=== PATIENT | female | born 1985 | race Caucasian/White ===

== ENCOUNTER 2016-09-27 18:00 | Emergency (ER) | payer OTHER ==
--- NOTE | 2016-09-27 18:05 | UCPHY ---
H & P Patient Type: New HPI/ROS: HPI CHIEF COMPLAINT: Nausea vomiting, diarrhea, dehydration HISTORY OF PRESENT ILLNESS: This patient very pleasant 30-year-old female significant past medical history for cervical cancer in remission, did receive radiation and chemotherapy last chemotherapy dose was April 2015, she presents urgent care with ongoing nausea vomiting diarrhea with intermittent over the past 6 months. Weight loss 20 lb. No nighttime sweats or chills. She was just seen by [facility]ology of the [facility] yesterday she had an EGD and a colonoscopy she is unclear exactly of the biopsy results but does report that she had a clean EGD and colonoscopy. She is being followed by them for weight loss and persistent nausea vomiting and diarrhea. She states she has also seen oncology for this problem. She presents urgent care as she had continues to have nausea vomiting diarrhea she is requesting IV fluids. Currently upon arrival here to the Urgent Care she appears well nontoxic however she is cachectic malnourished. She has no abdominal pain. No fever. No chest pain shortness of breath. Patient also tells me that she has been doing this for close to 6 months. She has had diarrheal studies. Followed by GI. Her oncologist is Dr. Blake is aware of weight lost nausea vomiting diarrhea. Recommend to see GI. Past Medical History: Cervical cancer, anxiety Past Surgical History: no recent surgical history, port left chest Social History: Denies daily use of drugs alcohol tobacco products Family History: noncontributory ROS REVIEW OF SYSTEMS: A comprehensive 10 point review of systems is otherwise negative aside from elements mentioned in the history of present illness. Exam Constitutional appears well nontoxic, however malnourished, cachectic, triage nursing summary reviewed, vital signs reviewed, awake/alert. Eyes normal conjunctivae and sclera, EOMI, PERRLA. HENT normal inspection, atraumatic, moist mucus membranes, no epistaxis, neck supple/ no meningismus, no raccoon eyes. Respiratory clear to auscultation bilaterally, normal breath sounds, no respiratory distress, no wheezing. Cardiovascular rate normal, regular rhythm, no murmur, no edema, distal pulses normal. Gastrointestinal soft, non-tender, no rebound, no guarding, normal bowel sounds, no distension, no pulsatile mass. Genitourinary no CVA tenderness. Musculoskeletal no midline vertebral tenderness, full range of motion, no calf swelling, no tenderness of extremities, no meningismus, good pulses, neurovascularly intact. Skin pink, warm, & dry, no rash, skin atraumatic. Neurologic awake, alert and oriented x 3, AAOx3, moves all 4 extremities equally, motor intact, sensory intact, CN II-XII intact, normal cerebellar, normal vision, normal speech. Psychiatric normal mood/affect. Heme/Lymph/Immune no lymphadenopathy. Differential Diagnosis: includes but is not limited to in a particular order, electrolyte disturbance, dehydration, malabsorption, malnutrition, protein deficiency, anxiety, depression Medical Decision Making: Plan for this patient will access her port at her request, she received IV fluids 2 L bolus, check basic blood work including abdominal labs. And re-evaluate. I do recommend she follows up with her fitter's assistant in [facility] [place] for weight loss and malnutrition. She agrees with this plan. IV Zofran has been ordered for nausea. Re-evaluation: 1900: Re-examination at this time she is getting IV fluids she feels well. No vomiting. No fever. Blood work has been reviewed is unremarkable. Her lower to go home do recommend close follow-up with her GI doctor if worsening of symptoms including continued to have vomiting and nausea abdominal pain fever or weight loss she should seek medical attention in the emergency room. She understands. Discussed at length with her and her . Source: Patient - Medical/Surgical History Hx Diabetes: No Other PMH: cervical cancer, lymph nodes, port placement, hip surgery, lymphnode ectomy 2011, leap BX 2011 - Family History Significant Family History: No pertinent family hx - Social History Smoking Status: Former smoker Constitutional: Initial Vital Signs Heart Rate 116 H 09/27/16 18:03 Respiratory Rate 18 09/27/16 18:03 Blood Pressure 102/71 09/27/16 18:03 O2 Sat (%) 99 09/27/16 18:03 O2 Delivery Mode Room Air Allergies/Adverse Reactions: No Known Allergies Allergy (Unverified 08/20/12 08:57) Home Medications: Medication Instructions Recorded Calcium Carb W/Vit D [Calcium Carb 500 mg PO DAILY 10/23/13 W/Vit D 500/200 (*)] Estrogens,Conjugated [Premarin 1 paris VAG MWF@2100 10/23/13 Vaginal (*)] Naproxen [Naprosyn 250 mg] 250 mg PO BID PRN 10/23/13 Norgestimate-Ethinyl Estradiol 1 each PO DAILY 10/23/13 [Sprintec 28 Day Tablet] Medical Decision Making - Data Points Laboratory Results: Laboratory Results 09/27/16 18:40 09/27/16 18:40 09/27/16 09/27/16 09/27/16 18:40 18:40 18:40 WBC RBC Hgb Hct MCV MCH MCHC RDW Plt Count MPV Neut % (Auto) Lymph % (Auto) [place] % (Auto) Eos % (Auto) Baso % (Auto) Nucleat RBC Rel Count Absolute Neuts (auto) Absolute Lymphs (auto) Absolute Monos (auto) Absolute Eos (auto) Absolute Basos (auto) Absolute Nucleated RBC Immature Gran % Immature Gran # PT 12.9 SEC SEC (12.0-15.0) INR 1.00 (0.83-1.16) APTT 30.0 SEC SEC (23.0-38.0) VBG Lactic Acid Sodium 135 mEq/L mEq/L (134-144) Potassium 3.6 mEq/L mEq/L (3.5-5.2) Chloride 97 mEq/L mEq/L (97-110) Carbon Dioxide 24 mEq/l mEq/l (22-31) Anion Gap 14 mEq/L mEq/L (8-16) BUN 11 mg/dL mg/dL (7-23) Creatinine 0.7 mg/dL mg/dL (0.6-1.0) Estimated GFR > 60 Glucose 107 mg/dL H mg/dL (70-100) Calcium 8.8 mg/dL mg/dL (8.5-10.4) Total Bilirubin 0.6 mg/dL mg/dL (0.1-1.4) Conjugated Bilirubin 0.2 mg/dL mg/dL (0.0-0.5) Unconjugated Bilirubin 0.4 mg/dL mg/dL (0.0-1.1) AST 38 IU/L IU/L (14-46) ALT 96 IU/L H IU/L (9-52) Alkaline Phosphatase 52 IU/L IU/L (38-126) Total Protein 6.4 g/dL g/dL (6.3-8.2) Albumin 3.6 g/dL g/dL (3.5-5.0) Lipase 66.0 IU/L IU/L (23-300) Beta HCG, Qual NEGATIVE 09/27/16 09/27/16 18:40 18:40 WBC 6.94 10^3/uL 10^3/uL (3.80-9.50) RBC 4.18 10^6/uL 10^6/uL (4.18-5.33) Hgb 13.5 g/dL g/dL (12.6-16.3) Hct 39.6 % % (38.0-47.0) MCV 94.7 fL fL (81.5-99.8) MCH 32.3 pg pg (27.9-34.1) MCHC 34.1 g/dL g/dL (32.4-36.7) RDW 13.4 % % (11.5-15.2) Plt Count 289 10^3/uL 10^3/uL (150-400) MPV 10.2 fL fL (8.7-11.7) Neut % (Auto) 68.3 % % (39.3-74.2) Lymph % (Auto) 23.1 % % (15.0-45.0) [place] % (Auto) 7.5 % % (4.5-13.0) Eos % (Auto) 0.6 % % (0.6-7.6) Baso % (Auto) 0.4 % % (0.3-1.7) Nucleat RBC Rel Count 0.0 % % (0.0-0.2) Absolute Neuts (auto) 4.74 10^3/uL 10^3/uL (1.70-6.50) Absolute Lymphs (auto) 1.60 10^3/uL 10^3/uL (1.00-3.00) Absolute Monos (auto) 0.52 10^3/uL 10^3/uL (0.30-0.80) Absolute Eos (auto) 0.04 10^3/uL 10^3/uL (0.03-0.40) Absolute Basos (auto) 0.03 10^3/uL 10^3/uL (0.02-0.10) Absolute Nucleated RBC 0.00 10^3/uL 10^3/uL (0-0.01) Immature Gran % 0.1 % % (0.0-1.1) Immature Gran # 0.01 10^3/uL 10^3/uL (0.00-0.10) PT INR APTT VBG Lactic Acid 1.0 mmol/L mmol/L (0.7-2.1) Sodium Potassium Chloride Carbon Dioxide Anion Gap BUN Creatinine Estimated GFR Glucose Calcium Total Bilirubin Conjugated Bilirubin Unconjugated Bilirubin AST ALT Alkaline Phosphatase Total Protein Albumin Lipase Beta HCG, Qual Medications Given: Discontinued Medications Sodium Chloride (Ns) 2,000 mls @ 0 mls/hr IV ONCE ONE PRN Reason: Wide Open Stop: 09/27/16 18:07 Last Admin: 09/27/16 18:43 Dose: 2,000 mls Ondansetron HCl (Zofran) 4 mg IVP EDNOW ONE Stop: 09/27/16 18:07 Last Admin: 09/27/16 18:44 Dose: 4 mg Departure - Departure Disposition: Home, Routine, Self-Care Clinical Impression: Dehydration, Nausea vomiting and diarrhea Condition: Good Instructions: Dehydration (ED), Acute Nausea and Vomiting (ED), Acute Diarrhea (ED) Additional Instructions: 1. Return to the urgent care or emergency room if you have any worsening symptoms questions or concerns. - PQRS PQRS Measurement: n/a
[2016-09-27] MEDS ORDERED: ONDANSETRON 4 MG/2 ML VIAL IVP ONE (18:06)
[2016-09-27] MEDS ORDERED: NS 2,000 ML IV ONE (18:06)
[2016-09-27 18:10] VITALS: BP 102/71; PULSE 116; RESP 18; O2SAT 99
[2016-09-27 18:44] LABS: % IMMATURE GRANULYOCYTES 0.1 % (0.0-1.1); ABSOLUTE IMMATURE GRANULOCYTES 0.01 10^3/uL (0.00-0.10); ADD DIFF? NO; ADD MORPH? NO; ADD SCAN? NO; ATYPICAL LYMPHOCYTE FLAG 20 (0-99); FRAGMENT RBC FLAG 0 (0-99); HEMATOCRIT 39.6 % (38.0-47.0); HEMOGLOBIN 13.5 g/dL (12.6-16.3); LEFT SHIFT FLG 0 (0-99); LIPEMIA HEMOLYSIS FLAG 90 (0-99); MEAN CELL HEMOGLOBIN 32.3 pg (27.9-34.1); MEAN CELL HEMOGLOBIN CONCENTR. 34.1 g/dL (32.4-36.7); MEAN CELL VOLUME 94.7 fL (81.5-99.8); MEAN PLATELET VOLUME 10.2 fL (8.7-11.7); PLATELET CLUMPS FLAG 0 (0-99); PLATELET COUNT 289 10^3/uL (150-400); RED BLOOD CELL COUNT 4.18 10^6/uL (4.18-5.33); RED CELL DISTRIBUTION WIDTH 13.4 % (11.5-15.2)
[2016-09-27 18:55] LABS: PROTIME(PATIENT) 12.9 SEC (12.0-15.0)
[2016-09-27 19:04] LABS: ALANINE AMINOTRANSFERASE 96 IU/L (9-52); ALBUMIN 3.6 g/dL (3.5-5.0); ALKALINE PHOSPHATASE 52 IU/L (38-126); ANION GAP 14 mEq/L (8-16); ASPARTATE AMINOTRANSFERASE 38 IU/L (14-46); BILIRUBIN,TOTAL 0.6 mg/dL (0.1-1.4); BILIRUBIN-CONJUGATED 0.2 mg/dL (0.0-0.5); BILIRUBIN-UNCONJUGATED 0.4 mg/dL (0.0-1.1); CALCIUM 8.8 mg/dL (8.5-10.4); CARBON DIOXIDE 24 mEq/l (22-31); CHLORIDE 97 mEq/L (97-110); CREATININE 0.7 mg/dL (0.6-1.0); GLOMERULAR FILTRATION RATE > 60; GLUCOSE 107 mg/dL (70-100); POTASSIUM 3.6 mEq/L (3.5-5.2); SODIUM 135 mEq/L (134-144); TOTAL PROTEIN 6.4 g/dL (6.3-8.2)
[2016-09-27 19:40] LABS: COLOR YELLOW; LEUKOCYTE ESTERASE,URINE NEGATIVE (NEGATIVE); NITRITE,URINE NEGATIVE (NEGATIVE)
[2016-09-27 19:47] LABS: RBC,URINE OCCASIONAL /hpf (0-3); WBC,URINE NONE SEEN /hpf (0-3)
[2016-09-27 19:48] LABS: BACTERIA 1+ /hpf (NONE SEEN)
== END 2016-09-27 20:27 | disposition home or self-care (01) ==
LOC: CED 18:00
DX: R11.2 Nausea with vomiting, unspecified (principal); R19.7 Diarrhea, unspecified; E86.0 Dehydration; F41.9 Anxiety disorder, unspecified; Z85.41 Personal history of malignant neoplasm of cervix uteri; Z92.3 Personal history of irradiation; Z92.21 Personal history of antineoplastic chemotherapy
CPT/HCPCS: 80048-PO; 80076-PO; 81003-PO; 81015-PO; 83605-PO; 83690-PO; 84703-PO; 85025-PO; 85610-PO; 85730-PO; 96361-PO; 96374-PO; 99205-PO; G0463-PO; J2405

== ENCOUNTER 2016-10-15 22:07 | Emergency (ER) | payer OTHER ==
--- NOTE | 2016-10-15 22:30 | UCPHY ---
H & P Patient Type: Established HPI/ROS: Patient presented to the urgent care at 10:20 a.m. at night. She has a complex history of cervical cancer with chronic diarrhea nausea and requires frequent presentations for IV hydration. Patient transfer Seth at home was not helping. She has a Port-A-Cath in place. She is presenting tonight requesting antiemetics and IV fluids. I have explained to her that the department will be closing and 40 minutes and that is unlikely that we will be able to complete her care with in that amount of time and if we do not and then she would need to be transferred to another facility. On medical screening examination she is sitting comfortably in no distress. There is no evidence of acute emergent process at this time. I suggested that she go to [facility] Emergency Department where she can have her port accessed received antiemetics and adequate fluid is and reassessment. Patient is green with this plan and has left to present to the facility. Smoking Status: Former smoker Allergies/Adverse Reactions: No Known Allergies Allergy (Unverified 08/20/12 08:57) Home Medications: Medication Instructions Recorded Calcium Carb W/Vit D [Calcium Carb 500 mg PO DAILY 10/23/13 W/Vit D 500/200 (*)] Estrogens,Conjugated [Premarin 1 paris VAG MWF@2100 10/23/13 Vaginal (*)] Naproxen [Naprosyn 250 mg] 250 mg PO BID PRN 10/23/13 Norgestimate-Ethinyl Estradiol 1 each PO DAILY 10/23/13 [Sprintec 28 Day Tablet] Departure - Departure Disposition: Left Without Being Seen Condition: Fair Referrals: Abimbola Blake MD [Primary Care Provider] - As per Instructions - PQRS PQRS Measurement: NA
== END 2016-10-15 22:25 | disposition left against medical advice (07) ==
LOC: CED 22:07
DX: Z53.21 Procedure and treatment not carried out due to patient leaving prior to being seen by health care provider (principal); R11.10 Vomiting, unspecified; C53.9 Malignant neoplasm of cervix uteri, unspecified; Z87.891 Personal history of nicotine dependence

== ENCOUNTER 2016-10-28 08:38 | Emergency (ER) | payer OTHER ==
--- NOTE | 2016-10-28 09:46 | EDPHY ---
H & P Stated Complaint: N/V "dehydrated" since last pm History chronic N/V Time Seen by Provider: 10/28/16 09:22 HPI/ROS: Chief Complaint: Nausea vomiting HPI: 31-year-old with a history of metastatic cervical cancer, in remission since 2013. She has been having nausea vomiting and diarrhea for the last 2 and half months. She has had an extensive workup for this including CT scanning , GI consultation with upper and lower endoscopies which have not provided with any explanation for her symptoms. Patient takes Zofran and Reglan as needed. Patient states she has had her normal worsening nausea last night bony able to keep anything down since about 3 o'clock this morning. Zofran did not help. No fevers or chills. Is having some of her persistent diarrhea but this is unchanged. No blood or hematochezia. No chest pain cough or shortness of breath. No real abdominal pain associated with this either. ROS: 10 point Review of Systems is negative except as noted in the HPI. PMH: Metastatic cervical cancer Chronic nausea vomiting and diarrhea Social History: No smoking, no alcohol, occasional medical marijuana Family History: non-contributory Physical Exam: Gen: Awake, Alert, No Distress HEENT: Nose: no rhinorrhea Eyes: PERRLA, EOMI Mouth: Dry mucosa Neck: Supple, no JVD Chest: nontender, lungs clear to auscultation Heart: S1, S2 normal, no murmur Abd: Soft, non-tender, no guarding Back: no CVA tenderness, no midline tenderness Ext: no edema, non-tender Skin: no rash Neuro: CN II-XII intact, Sensation grossly intact, Strength 5/5 in bilateral upper and lower extremities - Personal History LMP (Females 10-55): Over 28 Days Ago Current Tetanus/Diphtheria Vaccine: Unsure Current Tetanus Diphtheria and Acellular Pertussis (TDAP): Unsure - Medical/Surgical History Hx Asthma: No Hx Chronic Respiratory Disease: No Hx Diabetes: No Hx Cardiac Disease: No Hx Renal Disease: No Other PMH: cervical cancer, lymph nodes, port placement, hip surgery, lymphnodectomy 2011, leep 2011 - Social History Smoking Status: Former smoker Constitutional: Initial Vital Signs Temperature (C) 36.5 C 10/28/16 09:00 Heart Rate 99 10/28/16 09:00 Respiratory Rate 16 10/28/16 09:00 Blood Pressure 100/81 H 10/28/16 09:00 O2 Sat (%) 97 10/28/16 09:00 O2 Delivery Mode Room Air Allergies/Adverse Reactions: No Known Allergies Allergy (Verified 10/28/16 09:15) Home Medications: Medication Instructions Recorded Compazine 10/28/16 Imipramine HCl 10/28/16 Imodium 2 mg (*) 10/28/16 Ondansetron HCl 10/28/16 traMADol 10/28/16 Medical Decision Making ED Course/Re-evaluation: Patient with a chronic nausea vomiting syndrome. She is clinically dehydrated but otherwise has a soft benign abdomen. Will obtain IV access, will give her hydration and antiemetics and reassess. I do not feel there is any imaging or blood tests in her indicated at this time at this is an exacerbation of her chronic condition which has been worked up extensively. Patient does not report any new symptoms and is comfortable with the plan. Departure - Departure Disposition: Home, Routine, Self-Care Clinical Impression: Nausea & vomiting, Dehydration Condition: Good Instructions: Acute Nausea and Vomiting in Children (ED), Dehydration (ED) Additional Instructions: Follow up with primary care physician in 3-4 days if symptoms are not improving. Return to the emergency depart for increasing pain, fevers, chills, blood in her stool, or any other concerns. Referrals: Abimbola Blake MD [Primary Care Provider] - As per Instructions
[2016-10-28] MEDS ORDERED: ONDANSETRON 4 MG/2 ML VIAL IVP ONE (09:51)
[2016-10-28] MEDS ORDERED: NS 2,000 ML IV ONE (09:51)
[2016-10-28 11:13] VITALS: RESP 14
[2016-10-28 11:40] VITALS: BP 127/89; PULSE 82; TEMP 97.5; O2SAT 95
== END 2016-10-28 11:47 | disposition home or self-care (01) ==
LOC: CED 08:38
DX: R11.2 Nausea with vomiting, unspecified (principal); E86.0 Dehydration; Z85.41 Personal history of malignant neoplasm of cervix uteri; Z87.891 Personal history of nicotine dependence
CPT/HCPCS: 96374; J2405

== ENCOUNTER 2017-04-15 13:13 | Emergency (ER) | payer OTHER ==
[2017-04-15] MEDS ORDERED: NS 1,000 ML IV ONE ×2 (13:44→14:31)
--- NOTE | 2017-04-15 13:44 | EDPHY ---
H & P Stated Complaint: Pt. states is on chemotherapy, needs rehydration. Denies vomiting. Fatigue HPI/ROS: CHIEF COMPLAINT: Dehydration History by patient HISTORY OF PRESENT ILLNESS: 31-year-old woman with a history of cervical cancer currently on chemotherapy with her last treatment 6 days ago presents today feeling weak and dizzy and like she needs IV fluids. She has had ongoing nausea and diarrhea. She describes the diarrhea as watery and nonbloody and persistent. She denies any vomiting. She denies any pain currently. She denies any urinary symptoms for cough. She denies any sore throat or thrush symptoms. She has had no fever. She is followed by a gynecological oncologist at [facility], Dr. Bryant. She had a dose of Nuesta for her white blood cell count 2 days ago. REVIEW OF SYSTEMS: As in HPI, and all other systems reviewed and are negative Source: Patient - Personal History LMP (Females 10-55): Over 28 Days Ago - Medical/Surgical History Hx Asthma: No Hx Chronic Respiratory Disease: No Hx Diabetes: No Hx Cardiac Disease: No Hx Renal Disease: No Other PMH: cervical cancer, lymph nodes, port placement, hip surgery, lymphnodectomy 2012, leep 2012 - Social History Smoking Status: Former smoker - Physical Exam Exam: General Appearance: Alert, nontoxic-appearing. Eyes: Pupils equal and round no pallor or injection. ENT, Mouth: Mucous membranes moist. OB clear with no erythema or exudate Respiratory: Normal, effort, lungs are clear to auscultation. No wheezes, rales or rhonchi. Chest: Port site clean, dry, intact Cardiovascular: Regular rate and rhythm. S1, S2, no murmurs, gallops or rubs appreciated Gastrointestinal: Abdomen is soft and nontender, no masses, bowel sounds normal. Back: No CVA tenderness, no bony tenderness Neurological: Awake, alert and oriented x 3, no pronator drift, normal gait, no pronator drift Skin: Warm and dry, no rashes. Musculoskeletal: No deformities or tenderness. Extremitie:s full range of motion, no edema Psychiatric: Patient has normal affect, there is no agitation. Constitutional: Initial Vital Signs Temperature (C) 36.4 C 04/15/17 13:20 Heart Rate 124 H 04/15/17 13:20 Respiratory Rate 16 04/15/17 13:20 Blood Pressure 74/60 L 04/15/17 13:20 O2 Sat (%) 96 04/15/17 13:20 O2 Delivery Mode Room Air Allergies/Adverse Reactions: No Known Allergies Allergy (Verified 04/15/17 13:18) Home Medications: Medication Instructions Recorded Avastin 04/15/17 CISplatin 04/15/17 Dexamethasone 04/15/17 Estrace Vaginal (*) 04/15/17 Imodium A-D 04/15/17 LORazepam 04/15/17 Neulasta 6mg (RX) 04/15/17 Opium Tincture 04/15/17 Oxyir 04/15/17 PACLitaxel 04/15/17 Sprintec 28 Day Tablet 04/15/17 Zofran Odt 04/15/17 Medical Decision Making ED Course/Re-evaluation: 31-year-old woman on chemotherapy for cervical cancer presents feeling dizzy and lightheaded with tachycardia and hypotension. Patient states her normal blood pressure tends to be low. She was given a L of normal saline with resolution of her tachycardia and improvement in her blood pressure. Her potassium was noted to be low. She was given oral potassium repeat that and a 2nd L of IV saline after which her blood pressure improved over 100 and she was feeling much better. There is no evidence of acute infection, I suspect this all dehydration related to her ongoing diarrhea and chemotherapy. Patient states she will follow up with her gynecology oncologist on Monday. - Data Points Laboratory Results: Laboratory Results 04/15/17 13:50 04/15/17 13:50 04/15/17 04/15/17 13:50 13:50 WBC 12.76 10^3/uL H 10^3/uL (3.80-9.50) RBC 4.16 10^6/uL L 10^6/uL (4.18-5.33) Hgb 13.6 g/dL g/dL (12.6-16.3) Hct 40.1 % % (38.0-47.0) MCV 96.4 fL fL (81.5-99.8) MCH 32.7 pg pg (27.9-34.1) MCHC 33.9 g/dL g/dL (32.4-36.7) RDW 13.0 % % (11.5-15.2) Plt Count 133 10^3/uL L 10^3/uL (150-400) MPV 11.0 fL fL (8.7-11.7) Neut % (Auto) Not Reported Lymph % (Auto) Not Reported [place] % (Auto) Not Reported Eos % (Auto) Not Reported Baso % (Auto) Not Reported Nucleat RBC Rel Count 0.0 % % (0.0-0.2) Absolute Neuts (auto) Not Reported Absolute Lymphs (auto) Not Reported Absolute Monos (auto) Not Reported Absolute Eos (auto) Not Reported Absolute Basos (auto) Not Reported Absolute Nucleated RBC 0.00 10^3/uL 10^3/uL (0-0.01) Immature Gran % Not Reported Seg Neutrophils % 49 % % Band Neutrophils % 29 % % Lymphocytes % 21 % % Monocytes % 1 % % Immature Gran # Not Reported Absolute Seg Neuts 6.3 K/MM3 K/MM3 (1.8-7) Absolute Band Neuts 3.7 K/MM3 H K/MM3 (0-0.7) Absolute Lymphocytes 2.7 K/mm3 K/mm3 (1.0-4.8) Absolute Monocytes 0.1 K/mm3 K/mm3 (0-0.8) Dohle Bodies PRESENT H Platelet Estimate DECREASED L (ADEQ) Oval Macrocytes 1+ H Sodium 133 mEq/L L mEq/L (134-144) Potassium 3.2 mEq/L L mEq/L (3.5-5.2) Chloride 96 mEq/L L mEq/L (97-110) Carbon Dioxide 23 mEq/l mEq/l (22-31) Anion Gap 14 mEq/L mEq/L (8-16) BUN 20 mg/dL mg/dL (7-23) Creatinine 0.8 mg/dL mg/dL (0.6-1.0) Estimated GFR > 60 Glucose 81 mg/dL mg/dL (70-100) Calcium 8.7 mg/dL mg/dL (8.5-10.4) Medications Given: Discontinued Medications Sodium Chloride (Ns) 1,000 mls @ 0 mls/hr IV EDNOW ONE; Wide Open PRN Reason: Protocol Stop: 04/15/17 13:45 Last Admin: 04/15/17 13:57 Dose: 1,000 mls Sodium Chloride (Ns) 1,000 mls @ 0 mls/hr IV ONCE ONE PRN Reason: Wide Open Stop: 10/21/17 14:32 Last Admin: 04/15/17 14:33 Dose: 1,000 mls Potassium Chloride (Potassium Chloride Oral Liquid) 20 meq PO EDNOW ONE Stop: 04/15/17 14:37 Last Admin: 04/15/17 14:51 Dose: 20 meq Departure - Departure Disposition: Home, Routine, Self-Care Condition: Fair Instructions: Dehydration (ED) Additional Instructions: You were seen by Dr. Treva Harding today. Please drink plenty of fluids and follow up with your account executive software sales oncologist as soon as possible. Return for any worsening or new concerns.
[2017-04-15 13:56] LABS: ADD DIFF? YES; ADD MORPH? NO; ADD SCAN? YES; ATYPICAL LYMPHOCYTE FLAG 0 (0-99); FRAGMENT RBC FLAG 0 (0-99); HEMATOCRIT 40.1 % (38.0-47.0); HEMOGLOBIN 13.6 g/dL (12.6-16.3); LIPEMIA HEMOLYSIS FLAG 90 (0-99); MEAN CELL HEMOGLOBIN 32.7 pg (27.9-34.1); MEAN CELL HEMOGLOBIN CONCENTR. 33.9 g/dL (32.4-36.7); MEAN CELL VOLUME 96.4 fL (81.5-99.8); PLATELET CLUMPS FLAG 0 (0-99); PLATELET COUNT 133 10^3/uL (150-400); RED BLOOD CELL COUNT 4.16 10^6/uL (4.18-5.33)
[2017-04-15 13:59] LABS: LEFT SHIFT FLG 240 (0-99)
[2017-04-15 14:14] LABS: ANION GAP 14 mEq/L (8-16); CALCIUM 8.7 mg/dL (8.5-10.4); CARBON DIOXIDE 23 mEq/l (22-31); CHLORIDE 96 mEq/L (97-110); CREATININE 0.8 mg/dL (0.6-1.0); GLOMERULAR FILTRATION RATE > 60; GLUCOSE 81 mg/dL (70-100); POTASSIUM 3.2 mEq/L (3.5-5.2); SODIUM 133 mEq/L (134-144)
[2017-04-15 14:20] LABS: MACROCYTES 1+; PLATELET ESTIMATE DECREASED (ADEQ)
[2017-04-15 14:24] LABS: SCAN POSITIVE
[2017-04-15 14:28] VITALS: RESP 16; TEMP 97.5; O2SAT 96
[2017-04-15] MEDS ORDERED: POTASSIUM CL 20 MEQ/15 ML UDCUP PO ONE (14:36)
[2017-04-15 15:10] VITALS: PULSE 86
[2017-04-15 15:53] VITALS: BP 108/83
== END 2017-04-15 15:30 | disposition home or self-care (01) ==
LOC: CED 13:13
DX: E86.0 Dehydration (principal); Z85.41 Personal history of malignant neoplasm of cervix uteri; Z87.891 Personal history of nicotine dependence
CPT/HCPCS: 80048-PO; 85025-PO; J1642

== ENCOUNTER 2017-06-25 16:58 | Emergency (ER) | payer OTHER ==
[2017-06-25 17:07] VITALS: RESP 16; TEMP 97
[2017-06-25] MEDS ORDERED: METOCLOPRAMIDE 10 MG/2 ML VIAL IVP ONE (17:16)
[2017-06-25] MEDS ORDERED: NS 1,000 ML IV ONE ×2 (17:16→18:27)
--- NOTE | 2017-06-25 17:47 | EDPHY ---
H & P Stated Complaint: dehydration Time Seen by Provider: 06/25/17 17:14 HPI/ROS: CHIEF COMPLAINT: Dehydrated History by patient HISTORY OF PRESENT ILLNESS: 31-year-old woman with a history of cervical cancer who is currently on immuno- therapy and has completed chemotherapy presents complaining of ongoing nausea and vomiting after she eats and feeling like she is lightheaded and dizzy when she stands up or tries to move around. She feels like she is dehydrated. She has had similar symptoms before. She has ongoing diarrhea the for which she chronically takes Imodium and tincture of opium and this is not worse than usual. She denies any fever chills. She denies any dysuria, urgency frequency or hematuria. REVIEW OF SYSTEMS: As in HPI, and all other systems reviewed and are negative Source: Patient - Personal History LMP (Females 10-55): Unknown - Medical/Surgical History Hx Asthma: No Hx Chronic Respiratory Disease: No Hx Diabetes: No Hx Cardiac Disease: No Hx Renal Disease: No Other PMH: cervical cancer, lymph nodes, port placement, hip surgery, lymphnodectomy 2011, leep 2011 - Social History Smoking Status: Former smoker - Physical Exam Exam: General Appearance: Alert, nontoxic-appearing slightly pale. Head: normocephalic, atraumatic Eyes: Pupils equal and round, reactive to light, no pallor or injection. Mouth: Mucous membranes moist. Respiratory: Normal, effort, lungs are clear to auscultation. No wheezes, rales or rhonchi. Cardiovascular: Regular rate and rhythm. S1, S2, no murmurs, gallops or rubs appreciated Gastrointestinal: Abdomen is soft and nontender, no masses, bowel sounds normal. Back: No CVA tenderness, no bony tenderness Neurological: Awake, alert and oriented x 3, no pronator drift, normal gait, no pronator drift Skin: Warm and dry, no rashes. Musculoskeletal: No deformities or tenderness. Extremities: full range of motion, no edema, DP2+ bilat Psychiatric: Patient has normal affect, there is no agitation. Constitutional: Initial Vital Signs Temperature (C) 36.1 C 06/25/17 17:03 Heart Rate 100 06/25/17 17:03 Respiratory Rate 16 06/25/17 17:03 Blood Pressure 92/73 L 06/25/17 17:03 O2 Sat (%) 96 06/25/17 17:03 O2 Delivery Mode Room Air Allergies/Adverse Reactions: No Known Allergies Allergy (Verified 04/15/17 13:18) Home Medications: Medication Instructions Recorded Avastin 04/15/17 Dexamethasone 04/15/17 Estrace Vaginal (*) 04/15/17 Imodium A-D 04/15/17 LORazepam 04/15/17 Opium Tincture 04/15/17 Sprintec 28 Day Tablet 04/15/17 Zofran Odt 04/15/17 Lovenox 06/25/17 Medical Decision Making ED Course/Re-evaluation: 31-year-old woman with cervical cancer on immunotherapy presents with nausea poor p.o. intake and feeling dehydrated. She was initially tachycardic and hypotensive. Patient states her blood pressure normally runs low. She was given a L of normal saline with improvement in her heart rate and blood pressure into the normal range. She was given a 2nd L at all her symptoms resolved. Labs are notable for low hemoglobin and a low calcium. Albumin has been ordered as an added her labs to determine if this is a low calcium due to hypoalbuminemia or true low potassium value. Patient is asymptomatic from this at this time. I am recommending follow up with her oncologist next week to have it rechecked. Patient understands and is agreeable to this pain. - Data Points Laboratory Results: Laboratory Results 06/25/17 18:15 06/25/17 18:15 06/25/17 06/25/17 18:15 18:15 WBC 3.53 10^3/uL L 10^3/uL (3.80-9.50) RBC 3.59 10^6/uL L 10^6/uL (4.18-5.33) Hgb 11.2 g/dL L g/dL (12.6-16.3) Hct 33.5 % L % (38.0-47.0) MCV 93.3 fL fL (81.5-99.8) MCH 31.2 pg pg (27.9-34.1) MCHC 33.4 g/dL g/dL (32.4-36.7) RDW 13.0 % % (11.5-15.2) Plt Count 129 10^3/uL L 10^3/uL (150-400) MPV 9.8 fL fL (8.7-11.7) Neut % (Auto) 49.6 % % (39.3-74.2) Lymph % (Auto) 37.4 % % (15.0-45.0) [place] % (Auto) 9.9 % % (4.5-13.0) Eos % (Auto) 2.0 % % (0.6-7.6) Baso % (Auto) 0.8 % % (0.3-1.7) Nucleat RBC Rel Count 0.0 % % (0.0-0.2) Absolute Neuts (auto) 1.75 10^3/uL 10^3/uL (1.70-6.50) Absolute Lymphs (auto) 1.32 10^3/uL 10^3/uL (1.00-3.00) Absolute Monos (auto) 0.35 10^3/uL 10^3/uL (0.30-0.80) Absolute Eos (auto) 0.07 10^3/uL 10^3/uL (0.03-0.40) Absolute Basos (auto) 0.03 10^3/uL 10^3/uL (0.02-0.10) Absolute Nucleated RBC 0.00 10^3/uL 10^3/uL (0-0.01) Immature Gran % 0.3 % % (0.0-1.1) Immature Gran # 0.01 10^3/uL 10^3/uL (0.00-0.10) Sodium 138 mEq/L mEq/L (134-144) Potassium 3.8 mEq/L mEq/L (3.5-5.2) Chloride 103 mEq/L mEq/L (97-110) Carbon Dioxide 23 mEq/l mEq/l (22-31) Anion Gap 12 mEq/L mEq/L (8-16) BUN 11 mg/dL mg/dL (7-23) Creatinine 0.7 mg/dL mg/dL (0.6-1.0) Estimated GFR > 60 Glucose 95 mg/dL mg/dL (70-100) Calcium 8.0 mg/dL L mg/dL (8.5-10.4) Medications Given: Discontinued Medications Sodium Chloride (Ns) 1,000 mls @ 0 mls/hr IV EDNOW ONE; Wide Open PRN Reason: Protocol Stop: 06/25/17 17:17 Last Admin: 06/25/17 17:35 Dose: 1,000 mls Sodium Chloride (Ns) 1,000 mls @ 0 mls/hr IV ONCE ONE PRN Reason: Wide Open Stop: 06/25/17 18:28 Last Admin: 06/25/17 18:34 Dose: 1,000 mls Loperamide HCl (Imodium) 2 mg PO EDNOW ONE Stop: 06/25/17 17:56 Last Admin: 06/25/17 18:21 Dose: 2 mg Metoclopramide HCl (Reglan Injection) 10 mg IVP EDNOW ONE Stop: 06/25/17 17:17 Last Admin: 06/25/17 17:40 Dose: 10 mg Departure - Departure Disposition: Home, Routine, Self-Care Clinical Impression: Dehydration, moderate, Hypocalcemia Condition: Fair Instructions: Dehydration (ED), Hypocalcemia (ED), Anemia (ED) Additional Instructions: You were seen by Dr. Treva Harding today. We have given you IV fluids. Your blood work today showed some anemia with a hemoglobin of 11.2. Your calcium was low at 8. Please have this rechecked by your regular doctor within a week. Return for any worsening or new concerns. Referrals: NONE *PRIMARY CARE P,. [Primary Care Provider] - As per Instructions
[2017-06-25] MEDS ORDERED: LOPERAMIDE HCL 2 MG CAP PO ONE (17:55)
[2017-06-25 18:20] LABS: PLATELET COUNT 129 10^3/uL (150-400)
[2017-06-25 18:30] VITALS: BP 105/71; PULSE 78; O2SAT 98
[2017-06-25] MEDS ORDERED: HEPARIN PRESERV FREE 1 UNIT/1 ML 5 ML SYR IVP SCH (19:15)
== END 2017-06-25 19:20 | disposition home or self-care (01) ==
LOC: CED 16:58
DX: E86.0 Dehydration (principal); E83.51 Hypocalcemia; E86.9 Volume depletion, unspecified; Z85.41 Personal history of malignant neoplasm of cervix uteri; Z87.891 Personal history of nicotine dependence
CPT/HCPCS: 80048-PO; 82040-PO; 85025-PO; 96374; J1642; J2765

== ENCOUNTER 2017-08-26 13:33 | Emergency (ER) | payer OTHER ==
[2017-08-26 13:58] VITALS: TEMP 97.7
[2017-08-26] MEDS ORDERED: ONDANSETRON 4 MG/2 ML VIAL IVP ONE (14:06)
[2017-08-26] MEDS ORDERED: NS 1,000 ML IV ONE ×2 (14:06)
--- NOTE | 2017-08-26 14:08 | EDPHY ---
H & P Stated Complaint: n/v since yesterday night. Cancer pt. Time Seen by Provider: 08/26/17 13:58 HPI/ROS: CHIEF COMPLAINT: Vomiting, dehydration HISTORY OF PRESENT ILLNESS: Patient is a 31-year-old female with cervical cancer post LEEP procedure and chemotherapy now on immunosuppressive therapy comes to the emergency department complaining of nausea vomiting and dehydration. She states that this happens to her occasionally. She is suspicious that is because she has added at more fiber and bulking agents to her diet. She has not had a fever. No diarrhea. No blood in her vomit. She also started prednisone about a week and half ago and tramadol a few days ago and wonders if they may be contributing. She thinks that tramadol is working effectively for her pain but tried taking Ativan which had previously been her nausea medication and it made her too sedated. She is here requesting fluids and Zofran. REVIEW OF SYSTEMS: Constitutional: denies: chills, fever, recent illness, recent injury EENTM: denies: blurred vision, double vision, nose congestion Respiratory: denies: cough, shortness of breath Cardiac: denies: chest pain, irregular heart rate, lightheadedness, palpitations Gastrointestinal/Abdominal: See HPI Genitourinary: denies: dysuria, frequency, hematuria, pain Musculoskeletal: denies: joint pain, muscle pain Skin: denies: lesions, rash, jaundice, bruising Neurological: denies: headache, numbness, paresthesia, tingling, dizziness, weakness Hematologic/Lymphatic: denies: blood clots, easy bleeding, easy bruising Immunologic/allergic: denies: HIV/AIDS, transplant EXAM: GENERAL: Well-appearing, well-nourished and in no acute distress. HEAD: Atraumatic, normocephalic. EYES: Pupils equal round and reactive to light, extraocular movements intact, sclera anicteric, conjunctiva are normal. ENT: TMs normal, nares patent, oropharynx clear without exudates. Moist mucous membranes. NECK: Normal range of motion, supple without lymphadenopathy or JVD. LUNGS: Breath sounds clear to auscultation bilaterally and equal. No wheezes rales or rhonchi. HEART: Regular rate and rhythm without murmurs, rubs or gallops. ABDOMEN: Soft, nontender, normoactive bowel sounds. No guarding, no rebound. No masses appreciated. BACK: No CVA tenderness, no spinal tenderness, step-offs or deformities EXTREMITIES: Normal range of motion, no pitting or edema. No clubbing or cyanosis. NEUROLOGICAL: Cranial nerves II through XII grossly intact. Normal speech, normal gait. 5/5 strength, normal movement in all extremities, normal sensation PSYCH: Normal mood, normal affect. SKIN: Warm, dry, normal turgor, no visible rashes or lesions. Source: Patient Exam Limitations: No limitations - Personal History Current Tetanus/Diphtheria Vaccine: No Current Tetanus Diphtheria and Acellular Pertussis (TDAP): No - Medical/Surgical History Hx Asthma: No Hx Chronic Respiratory Disease: No Hx Diabetes: No Hx Cardiac Disease: No Hx Renal Disease: No Hx Cirrhosis: No Hx Alcoholism: No Hx HIV/AIDS: No Hx Splenectomy or Spleen Trauma: No Other PMH: cervical cancer, lymph nodes, port placement, hip surgery, lymphnodectomy 2011, leep 2011 - Family History Significant Family History: No pertinent family hx - Social History Smoking Status: Former smoker Alcohol Use: Sober Drug Use: None Constitutional: Initial Vital Signs Temperature (C) 36.5 C 08/26/17 13:46 Heart Rate 61 08/26/17 13:46 Respiratory Rate 14 08/26/17 13:46 Blood Pressure 106/85 H 08/26/17 13:46 O2 Sat (%) 97 08/26/17 13:46 O2 Delivery Mode Room Air Allergies/Adverse Reactions: No Known Allergies Allergy (Verified 08/26/17 13:50) Home Medications: Medication Instructions Recorded LORazepam 04/15/17 Opium Tincture 04/15/17 Zofran Odt 04/15/17 Lovenox 06/25/17 CeleBREX 08/26/17 LYRICA 08/26/17 Ritalin 5mg (*) 08/26/17 Tramadol HCl 08/26/17 predniSONE 08/26/17 Medical Decision Making ED Course/Re-evaluation: Patient's abdominal exam is benign. She is requesting IV fluids and Zofran. She does not wish to have a bunch of testing done. We will hydrate treated observe. 4:10 p.m. the patient is feeling completely better. Her abdominal exam remains benign. She is eager to go home. She has prescriptions for Zofran and Phenergan at home and declines a prescription. We discussed indications for returning. Differential Diagnosis: Partial list of the Differential diagnosis considered include but were not limited to; dehydration, vomiting, gastroenteritis, medication reaction, food allergy and although unlikely based on the history and physical exam, I also considered obstruction, ischemia, biliary disease, peptic ulcer disease, appendicitis, . I discussed these differential diagnoses and the plan with the patient as well as the usual and expected course. The patient understands that the diagnosis is provisional and that in medicine we are not always correct and that further workup is often warranted. Usual and customary warnings were given. All of the patient's questions were answered. The patient was instructed to return to the emergency department should the symptoms at all worsen or return, otherwise to followup with the physician as we discussed. - Data Points Medications Given: Discontinued Medications Heparin Sodium (Porcine) (Heparin Lock Flush) 500 unit IVP EDNOW ONE Stop: 08/26/17 16:03 Last Admin: 08/26/17 16:10 Dose: 500 unit Sodium Chloride (Ns) 1,000 mls @ 0 mls/hr IV EDNOW ONE; Wide Open PRN Reason: Protocol Stop: 08/26/17 14:07 Last Admin: 08/26/17 14:20 Dose: 1,000 mls Sodium Chloride (Ns) 1,000 mls @ 0 mls/hr IV EDNOW ONE; Wide Open PRN Reason: Protocol Stop: 08/26/17 14:07 Last Admin: 08/26/17 15:00 Dose: 1,000 mls Morphine Sulfate (Morphine) 2 mg IVP EDNOW ONE Stop: 08/26/17 14:33 Last Admin: 08/26/17 14:46 Dose: 2 mg Ondansetron HCl (Zofran) 4 mg IVP EDNOW ONE Stop: 08/26/17 14:07 Last Admin: 08/26/17 14:45 Dose: 4 mg Departure - Departure Disposition: Home, Routine, Self-Care Clinical Impression: Dehydration Vomiting Qualifiers: Vomiting type: unspecified Vomiting Intractability: non-intractable Nausea presence: with nausea Qualified Code(s): R11.2 - Nausea with vomiting, unspecified Condition: Fair Instructions: Acute Nausea and Vomiting (ED) Referrals: NONE *PRIMARY CARE P,. [Primary Care Provider] - As per Instructions
[2017-08-26 16:09] VITALS: BP 102/67; PULSE 69; RESP 16; O2SAT 100
== END 2017-08-26 16:10 | disposition home or self-care (01) ==
LOC: CED 13:33
DX: E86.0 Dehydration (principal); R11.2 Nausea with vomiting, unspecified; E86.9 Volume depletion, unspecified; Z85.41 Personal history of malignant neoplasm of cervix uteri; Z87.891 Personal history of nicotine dependence
CPT/HCPCS: 96374; J1642; J2270; J2405